=== PATIENT | female | born 1985 | race Caucasian/White ===

== ENCOUNTER → 2018-06-18 | Outpatient (CLI) | payer SELFPAY | LOC: COL.VAS 09:00 | DX: I35.1 Nonrheumatic aortic (valve) insufficiency (principal); I07.1 Rheumatic tricuspid insufficiency ==

== ENCOUNTER 2021-02-03 19:17 | Emergency (ER) | payer SELFPAY ==
[~2021-02-03] VITALS: Ht 180.3 cm; Wt 122.7 kg
[2021-02-03 20:02] LABS: BASO # 0.1 (0.0-0.2); BASO % 0.8 % (0.0-2.0); EOS # 0.2 (0.0-0.7); EOS % 1.7 % (0-4.0); GRAN # 5.9 (1.4-6.5); GRAN % 67.6 % (42.2-75.2); HEMATOCRIT 44.3 % (37.0-47.0); LYMPH # 2.1 (1.2-3.4); LYMPH % 23.9 % (20.0-51.0); MEAN CELL VOLUME 87 fl (80.0-100.0); MEAN CORPUSCULAR HEMOGLOBIN 29 pg (27.0-31.0); MEAN CORPUSCULAR HGB CONC 34 g/dl (33.0-37.0); MEAN PLATELET VOLUME 11.8 fl (7.4-10.4); MONO # 0.5 (0.1-0.6); MONO % 5.8 % (1.7-9.3); PLATELET COUNT 254 K/mm3 (130-400); RED BLOOD COUNT 5.11 M/mm3 (4.10-5.30); REDCELL DISTRIBUTION WIDTH-CV 13.2 % (11.5-14.5)
[2021-02-03 20:26] LABS: ALANINE AMINOTRANSFERASE 16 U/L (4-34); ALBUMIN 4.2 gm/dL (3.5-5.0); ALKALINE PHOSPHATASE 56 U/L (50-136); ANION GAP 7 mmol/L (7-16); AST,SGOT 22 U/L (15-37); BILIRUBIN,TOTAL 0.8 mg/dL (0.0-1.0); BLOOD UREA NITROGEN 13 mg/dL (7-17); CALCIUM 9.4 mg/dL (8.4-10.2); CARBON DIOXIDE 23 mmol/L (22-30); CHLORIDE 107 mmol/L (98-107); CREATININE, serum 0.79 (0.52-1.25); GLUCOSE 95 mg/dL (74-106); POTASSIUM 3.7 mmol/L (3.4-5.0); SODIUM 136 mmol/L (137-145); TOTAL PROTEIN 7.4 gm/dL (6.4-8.2)
[2021-02-03 20:38] LABS: ERYTHROCYTE SEDIMENTATION RATE 11 mm/hr (0-20)
[2021-02-03] MEDS ORDERED: DOXYCYCLINE 10100 MG PO (20:50)
[2021-02-03 21:14] LABS: C-REACTIVE PROTEIN < 0.5 mg/dL (0.0-0.9)
[2021-02-03 21:19] VITALS: BP 131/79; PULSE 85; TEMP 97.8
== END 2021-02-03 21:19 | disposition home or self-care (01) ==
LOC: COL.ER 19:17
PROVIDERS: Emergency Medicine
DX: L03.116 Cellulitis of left lower limb (principal); M54.12 Radiculopathy, cervical region; I80.02 Phlebitis and thrombophlebitis of superficial vessels of left lower extremity; Q23.8 Other congenital malformations of aortic and mitral valves
CPT/HCPCS: J2060; J7030

== ENCOUNTER 2022-01-13 08:00 | Outpatient (RCR) | payer MEDICAID ==
[~2022-01-13 08:00] MED LIST: DOXYCYCLINE 10100 MG PO
== END 2022-01-31 | disposition home or self-care (01) ==
LOC: MKS.ESL.PT
DX: M54.50 Low back pain, unspecified (principal)

== ENCOUNTER 2022-02-16 13:51 | Outpatient (RCR) | payer MEDICAID | END 2022-02-16 13:52 | disposition home or self-care (01) | LOC: MKS.ESL.PT 13:51 | DX: M54.50 Low back pain, unspecified (principal) ==